=== PATIENT | female | born 1985 | race Caucasian/White ===

== ENCOUNTER → 2018-02-19 | Outpatient (CLI) | payer OTHER ==
[~2018-02-19] MED LIST: FLUT16SP19 NS; IPRN ENA; LORA-629 PO; MONT10TA PO; OMEP40CA48 PO
== END ==
LOC: RESP 05:12
PROVIDERS: ATTEND Otolaryngology
DX: J98.4 Other disorders of lung (principal)
CPT/HCPCS: 94060; 94726; 94729